=== PATIENT | female | born 1990 | race Caucasian/White ===

== ENCOUNTER 2019-05-19 11:22 | Outpatient (REF) | payer MEDICAID, SELFPAY ==
[2019-05-19 21:21] LABS: C-Reactive Protein 1.44 mg/dL (0.0-0.3); TSH (W/Ref FT4) 2.05 uIU/mL (0.36-3.74)
[2019-05-19 21:52] LABS: ESR 31 mm/hr (0-20)
[2019-05-20 16:22] LABS: Rheumatoid Factor <8.6 IU/mL (<12.0)
[2019-05-23 10:19] LABS: Cyclic Citrullinated Peptide <2.5 U/mL (<5.0)
[2019-05-23 13:26] LABS: ANA Titer Pattern 1:320 Homogeneous
[2019-05-23 14:51] LABS: ANA Interpretation Positive (Negative)
== END 2019-05-19 11:42 ==
LOC: NCHCN 11:22
PROVIDERS: PCP Nurse Practitioner Family; Visit Provider Nurse Practitioner Family
DX: M25.561 Pain in right knee (principal); Z80.3 Family history of malignant neoplasm of breast; Z00.00 Encounter for general adult medical examination without abnormal findings
CPT/HCPCS: 85652; 86200; 84443; 86038; 86140; 86431

== ENCOUNTER 2019-06-02 10:34 | Outpatient (REF) | payer MEDICAID, SELFPAY ==
[2019-06-08 11:23] LABS: dsDNA Ab, IgG <12.3 IU/mL (<30.0)
[2019-06-08 14:14] LABS: RNP Ab, IgG 33.1 Units (<20.0); SS-A Antibody 1.2 Units (<20.0); SS-B (La) Ab, IgG 13.4 Units (<20.0); Sm (Smith) Ab, IgG 1.9 Units (<20.0)
== END 2019-06-02 10:54 ==
LOC: NCHCN 10:34
PROVIDERS: PCP Nurse Practitioner Family; Visit Provider Nurse Practitioner Family
DX: R76.0 Raised antibody titer (principal); B35.1 Tinea unguium
CPT/HCPCS: 86225; 86235

== ENCOUNTER 2019-07-19 09:27 | Outpatient (CLI) | payer MEDICAID, SELFPAY ==
--- NOTE | 2019-07-19 09:00 | DI.RAD_ITS ---
EXAM: XR KNEE LT 3V AP,LAT,AMARI CLINICAL HISTORY: BILAT KNEE PAIN. TECHNIQUE: 2D digital imaging was performed. COMPARISON: XR KNEE RT 3V AP,LAT,AMARI from 07/19/2019 FINDINGS: BONES: No acute fracture is present. No bony destructive lesion is seen. JOINTS: The knee joints are normally aligned. No joint effusion is seen. There are no significant deg enerative changes. SOFT TISSUE: Normal. IMPRESSION: Normal radiographs of the left knee. DATA REPOSITORY: RADIATION DOSE DELIVERED:
== END 2019-07-19 09:47 ==
PROVIDERS: PCP Nurse Practitioner Family; Visit Provider Orthopaedic Surgery
DX: M25.561 Pain in right knee (principal); M25.562 Pain in left knee
CPT/HCPCS: 73562

== ENCOUNTER 2019-09-14 08:25 | Outpatient (CLI) | payer MEDICAID, SELFPAY ==
--- NOTE | 2019-09-14 10:45 | DI.RAD_ITS ---
EXAM: XR SHOULDER LT COMPLETE 2+V CLINICAL HISTORY: pain. TECHNIQUE: 2D digital imaging was performed. COMPARISON: No exams were available for comparison FINDINGS: BONES: No acute fracture is present. No bony destructive lesion is seen. JOINTS: No dislocation present. SOFT TISSUE: Normal. IMPRESSION: Unremarkable radiographs of the left shoulder. DATA REPOSITORY: RADIATION DOSE DELIVERED:
--- OUTSIDE RECORDS SUMMARY | 2019-09-15 08:27 | XMS_ITS ---
:[address] 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 and Prese nce of dental prostheti c device (complete) (part ial) Z97.2 IMMUNIZATIONS No Known Immunizations SOCIAL HISTORY Qualifiers Date Former Smoker REASON FOR REFERRAL FUNCTIONAL STATUS PLAN OF CARE Activity Details Follow Up Secondary Impressions Reason : VITAL SIGNS Blood pressure systolic 107 mm Hg 2019-02-23 Blood pressure diastolic 60 mm Hg 2019-02-23 MEDICATIONS Unknown Medications PROCEDURES Procedure Date Ordered Result Body Site Alginate Impressions Feb 23, 2019 PANORAMIC FILM SEE ALSO CODE [id number] Feb 23, 2019 COMP ORAL EVALUATION - NEW/EST PT Feb 23, 2019 RESULTS No Results REASON FOR VISIT 1st no-show, final impressions Insurance Providers [facility] Health Member Patient Patient Patient Patient Patient Subscriber Subscriber Subscriber Group Insurance Plan Plan Plan Plan ID Relationship Address Phone Name Date of ID Name Date of No Type Insurance Insurance Insurance Coverage to Subscriber Address Phone Name Dates Medicaid [phone] Medicaid self [place] 1 [id number] [place] [id number] [place] [id number] MEDICAL (GENERAL) HISTORY Type Description Date Surgical History 3 c-sections Surgical History full mouth extractions 2016
== END 2019-09-14 08:45 ==
PROVIDERS: PCP Nurse Practitioner Family; Visit Provider Orthopaedic Surgery
DX: M25.512 Pain in left shoulder (principal)
CPT/HCPCS: 73030